=== PATIENT | male | born 1960 | race Caucasian/White ===

== ENCOUNTER 2016-07-31 09:43 | Day surgery (SDC) | payer OTHER ==
[~2016-07-31 09:43] MED LIST: LIDOCAINE W/ SODIUM BICARB 0.5 ML SYR ONE; Lactated Ringers 1,000 ML PRIMARY IV ONE; ceFAZolin Inj 2gm (Premix) 50 ML IV ONE
[2016-07-31] MEDS ORDERED: Ropivacaine 0.2% VIAL 20 ML ONE (09:47)
[2016-07-31] MEDS ORDERED: EPINEPHrine Inj (1:1,000) 30mg/30ml vial ONE (09:47)
[2016-07-31] MEDS ORDERED: MIDAZOLAM 5 MG/1 ML ONE (10:39)
[2016-07-31] MEDS ORDERED: LIDOCAINE 2%/ EPI 1:200,000 - 20 ML VIAL ONE (10:39)
[2016-07-31] MEDS ORDERED: BUPivacaine Inj 0.5% PF (5mg/ml) 30ml vial ONE (10:40)
[2016-07-31] MEDS ORDERED: fentaNYL Inj 250 MCG/5 ML VIAL ONE (10:40)
[2016-07-31] MEDS ORDERED: DEXAMETHASONE SOD PHOSPHATE 4 MG/1 ML VIAL ONE (10:40)
[2016-07-31] MEDS ORDERED: ROCURONIUM 10 MG/1 ML - 5 ML VIAL IVP ONE (10:59)
[2016-07-31] MEDS ORDERED: LIDOCAINE MPF 2% - 5 ML (20 MG/1 ML) ONE (11:00)
--- NOTE | 2016-07-31 11:11 | CRNA.PROCE ---
Nerve Block Documentation - - Type of Nerve Block Used: Right Interscalene Block Position for Nerve Block: Supine Moniters Used During Block: EKG, SPO2, NIBP Oxygen Sumpplented: Yes Sedation Used - Enter Amount in Comment Field: Midazolam (mg): Yes (3mg), Fentanyl (mcg): Yes (50mg) Skin Prep Used: ChloroPrep Draped: No Technique: Nerve Stimulator Nerve Block Needle Used: 40 mm ProBlk II Stimulation Hz: 2 Stimulation Staring mA: 1.2 Stimulation Ending mA: 0.44 Local Anesthetic - Enter Amt in Comment Field: 0.5 % Bupivacaine Plain (mL): Yes (20ml), 2 % Xylocaine with Epinephrine 1:200,000 (mL): Yes (20ml) Additives to Nerve Blocks: Dexamethasone (mL): Yes (2ml(8mg))
[2016-07-31] MEDS ORDERED: Lactated Ringers 1,000 ML PRIMARY IV ONE (11:58)
[2016-07-31] MEDS ORDERED: BETAMET ACET/BETAMET NA PH 6 MG/1 ML - 5 ML ONE (13:37)
[2016-07-31] MEDS ORDERED: NORMAL SALINE 10 ML SYRINGE FLUSH IVP PRN ×2 (14:04→14:14)
[2016-07-31] MEDS ORDERED: KETOROLAC 30 MG/1 ML VIAL IVP PRN (14:04)
[2016-07-31] MEDS ORDERED: ONDANSETRON 4 MG/2 ML VIAL IVP PRN ×2 (14:04→14:14)
[2016-07-31] MEDS ORDERED: fentaNYL Inj 100 MCG/2 ML VIAL IVP PRN (14:04)
[2016-07-31] MEDS ORDERED: ATROPINE SULFATE 0.4 MG/1 ML VIAL IVP PRN (14:04)
[2016-07-31] MEDS ORDERED: Ondansetron ODT Tab 8 MG TAB PO PRN (14:04)
[2016-07-31] MEDS ORDERED: HYDROmorphone 2 MG/1 ML ONE (14:11)
[2016-07-31] MEDS ORDERED: KETOROLAC 30 MG/1 ML VIAL ONE (14:11)
[2016-07-31] MEDS: HYDROmorphone 2 MG/1 ML IVP PRN ×2 (14:13→14:27)
[2016-07-31] MEDS ORDERED: HYDROcodone-APAP 7.5 MG-325 MG TABLET PO PRN (14:14)
[2016-07-31] MEDS ORDERED: MORPHINE SULFATE 2 MG/1 ML IVP PRN (14:14)
[2016-07-31] MEDS ORDERED: Lactated Ringers 1,000 ML PRIMARY IV SCH ×2 (14:15)
[2016-07-31] MEDS ORDERED: HYDROcodone-APAP 7.5 MG-325 MG TABLET PO ONE (14:52)
[2016-07-31] MEDS ORDERED: Influenza 16-17 Vaccine(4yrs+) 45 MCG/0.5 ML SYRINGE IM ONE (16:09)
[2016-07-31 16:42] VITALS: TEMP 98.4
[2016-07-31 16:46] VITALS: RESP 15
== END 2016-07-31 16:30 | disposition home or self-care (01) ==
LOC: SDSC 09:43
PROVIDERS: ATTEND Orthopaedic Surgery
DX: M75.41 Impingement syndrome of right shoulder (principal); M19.011 Primary osteoarthritis, right shoulder; M75.111 Incomplete rotator cuff tear or rupture of right shoulder, not specified as traumatic; S43.431A Superior glenoid labrum lesion of right shoulder, initial encounter
CPT/HCPCS: 29823; 29824; J0171; J0690; J0702; J1885; J2704; J2795; J3010; 90673; J1100; J1170; J2001; J2250; J3490; J7120

== ENCOUNTER 2016-10-05 08:11 | Day surgery (SDC) | payer OTHER ==
[~2016-10-05 08:11] MED LIST changes: +BUPivacaine Inj 0.5% PF (5mg/ml) 10ml vial ONE; +LIDOCAINE 2% 20 MG/ML - 20 ML VIAL ONE; -ceFAZolin Inj 2gm (Premix) 50 ML IV ONE
[2016-10-05] MEDS ORDERED: ceFAZolin Inj 2gm (Premix) 50 ML IV ONE (09:13)
[2016-10-05] MEDS ORDERED: MIDAZOLAM 5 MG/1 ML ONE (09:26)
[2016-10-05] MEDS ORDERED: fentaNYL Inj 250 MCG/5 ML VIAL ONE (09:27)
[2016-10-05] MEDS ORDERED: BUPivacaine Liposome/PF (Exparel) Inj 20ml vial INFIL ONE (10:20)
--- NOTE | 2016-10-05 10:59 | GEN.OPNOTE ---
Operative Note Surgery Date: 10/05/16 Preoperative Diagnosis: Right inguinal hernia. Umbilical hernia Postoperative Diagnosis: Right inguinal hernia. Umbilical hernia Procedure: Right inguinal herniorrhaphy with Prolene mesh. Umbilical herniorrhaphy with Prolene mesh Surgeon: Zoltan Kruger MD Anesthesia Provider: Andrew Lundy CRNA Anesthesia Type: Local, MAC Estimated Blood Loss (mL): 5 Fluids: 2 g of Ancef. Lactated Ringer's IV sedation per anesthesia see notes in EMR. 0.5 Marcaine 2% Xylocaine 50-50 mixture 14 mL used. 20 mL of Exoprel Indications: Patient has an umbilical hernia and a right inguinal hernia Findings: Patient had the floor the ilioinguinal canal gone so direct hernia. Patient had preperitoneal fat herniating through the umbilicus Operative Summary: Patient is brought in operative room placed supine position given IV sedation. Prepped draped sterile fashion. Timeout performed per protocol. I infiltrated 0.5 Marcaine 2% Xylocaine 50-50 mixture injected to do a regional local block. After adequate sedation and local anesthetic may skin incision the right groin. Persisting left cautery dissection to Wojciech Ks tissue electrocautery. I infiltrated localized sacral LaparoSAC external oblique. Opened up after also external oblique. Care is taken to not injure the ilioinguinal nerve. Spermatic cord was dissected off the floor they'll and now. Patient had what appeared to be a direct hernia defect. I dissected free of cord lipoma and reduced it. Cut a piece of Prolene mesh to appropriate shape and size. Keyholed mesh to reconstruct the internal ring. Sewn the inferior edge of the mesh to the shelving edge of the ilioinguinal ligament. Tack the mesh around the spermatic cord to reconstruct the internal ring. Tack the superior aspect of the mesh to aponeurosis of the transversalis fascia. The medial Aspect of the mesh was tacked to the rectus sheath. Spermatic cord contents were returned is anatomical position. Aponeurosis of external oblique was closed using 2-0 Prolene continuous running suture. The wound was then infiltrated with Exoprel 15 L. Nora's fascia was reapproximated using 2-0 Vicryl simple sutures. Skin reapproximated using 4-0 Monocryl continues running septic restitch. Steri-Strips applied sterile dressing was applied. Infiltrate local anesthetic around umbilicus. A curvilinear incision was then made below the umbilicus. Hemostased and left cautery dissection to Wojciech Ks tissue left cautery reduce the skin off the hernia defect using electrocautery. Patient is herniated preperitoneal fat through the hernia defect. The fat was reduced. The defect was closed with simple interrupted 0 Prolene sutures. Piece of mesh cut to appropriate shape and size Sewn to the fascia with 2-0 Prolene continuous running suture. Skin of umbilicus is tacked back down to the fascia using 2-0 Vicryl simple sutures. Skin reapproximated using 4-0 Monocryl simple sutures. Steri-Strips applied sterile dressings applied. Patient tolerated procedure well the were no complications. Patient transferred recovery room stable condition. Counts were correct.
[2016-10-05] MEDS ORDERED: HYDROcodone-APAP 7.5 MG-325 MG TABLET PO ONE (11:34)
[2016-10-05 12:02] VITALS: RESP 17; TEMP 97.5
== END 2016-10-05 11:55 | disposition home or self-care (01) ==
LOC: SDSC 08:11
PROVIDERS: ATTEND Surgery
DX: K40.90 Unilateral inguinal hernia, without obstruction or gangrene, not specified as recurrent (principal); K42.9 Umbilical hernia without obstruction or gangrene
CPT/HCPCS: 49505; 49585; C9290; J0690; J2704; J3010; J2001; J2250; J3490; J7120

== ENCOUNTER → 2016-10-16 | Outpatient (CLI) | payer OTHER ==
[2016-10-16 17:54] LABS: CHOL/HDL RATIO 5.6 RATIO (0-4.0); LDL CHOLESTEROL,CALCULATED 157.8 mg/dL
[2016-10-16 17:55] LABS: BLOOD UREA NITROGEN 21 mg/dL (7-22); EST GLOMERULAR FILTRATION > 60 (>60 ml/min/1.73m(2)); SERUM ALBUMIN 4.7 g/dL (3.5-4.8)
[2016-10-16 17:56] LABS: HEMOGLOBIN A1C 5.63 % (4.2-6.0)
== END ==
LOC: LAB 08:20
PROVIDERS: ATTEND Internal Medicine
DX: E11.9 Type 2 diabetes mellitus without complications (principal); E78.5 Hyperlipidemia, unspecified; E55.9 Vitamin D deficiency, unspecified
CPT/HCPCS: 80053; 80061; 82306; 83036

== ENCOUNTER → 2016-11-15 | Outpatient (CLI) | payer OTHER ==
[2016-11-15 09:04] LABS: BLOOD UREA NITROGEN 25 mg/dL (7-22); CALCIUM 9.6 mg/dL (8.7-10.7); CHOL/HDL RATIO 2.57 RATIO (0-4.0); EST GLOMERULAR FILTRATION > 60 (>60 ml/min/1.73m(2)); HDL CHOLESTEROL 47 mg/dL (40-150); SERUM ALBUMIN 4.4 g/dL (3.5-4.8); SERUM CHOLESTEROL 121 mg/dL (120-200)
== END ==
LOC: LAB 08:05
PROVIDERS: ATTEND Internal Medicine
DX: E78.5 Hyperlipidemia, unspecified (principal)
CPT/HCPCS: 36415; 80053; 80061; 82550